=== PATIENT | female | born 1945 | race Caucasian/White ===

== ENCOUNTER 2017-11-08 10:56 | Day surgery (SDC) | payer MEDICARE, OTHER ==
[2017-11-08] MEDS ORDERED: LACTATED RINGERS 1,000 ML IV ONE (11:17)
[2017-11-08] MEDS ORDERED: MIDAZOLAM 2 MG/2 ML VIAL IVP ONE (12:00)
[2017-11-08] MEDS ORDERED: fentaNYL 250 MCG/5 ML VIAL IVP ONE (12:00)
[2017-11-08 12:53] VITALS: BP 128/79
== END 2017-11-08 10:57 | disposition home or self-care (01) ==
LOC: SDS 10:56
PROVIDERS: ATTEND Surgery
PROC: 0DJD8ZZ Inspection of Lower Intestinal Tract, Via Natural or Artificial Opening Endoscopic (ICD-10-PCS; principal; 2017-11-08 12:00)
DX: Z12.11 Encounter for screening for malignant neoplasm of colon (principal); K64.8 Other hemorrhoids; I10 Essential (primary) hypertension; Z79.82 Long term (current) use of aspirin; J45.909 Unspecified asthma, uncomplicated; E78.00 Pure hypercholesterolemia, unspecified; Z87.891 Personal history of nicotine dependence
CPT/HCPCS: G0121; J7120

== ENCOUNTER 2017-11-16 09:38 | Outpatient (CLI) | payer MEDICARE, OTHER ==
[2017-11-16 10:08] LABS: BUN - BLOOD UREA NITROGEN 17 mg/dL (6-20); CALCIUM 8.9 mg/dL (8.5-10.3); CARBON DIOXIDE - CO2 32 mmol/L (21-32); CHLORIDE 97 mmol/L (101-111); CREATININE 0.8 mg/dL (0.4-1.0); GFR - MDRD 71 (>89); GLUCOSE 102 mg/dL (70-100); SODIUM 137 mmol/L (135-145)
[2017-11-16 10:27] LABS: HB2 TOTAL 16.1 g/dL; HEMOGLOBIN A1C 0.58 g/dL; HEMOGLOBIN A1C % 5.4 % (4.6-6.2)
== END 2017-11-16 09:39 | disposition home or self-care (01) ==
LOC: LAB 09:38
PROVIDERS: ATTEND Internal Medicine
DX: R94.6 Abnormal results of thyroid function studies (principal); R73.09 Other abnormal glucose
CPT/HCPCS: 36415; 80048; 83036; 84443

== ENCOUNTER 2018-09-13 13:09 | Outpatient (CLI) | payer MEDICARE, OTHER ==
[2018-09-13] MEDS ORDERED: ALBUTEROL NEB 2.5 MG/3 ML INH ONE (13:36)
== END 2018-09-13 13:10 | disposition home or self-care (01) ==
LOC: RT 13:09
PROVIDERS: ATTEND Internal Medicine
DX: R05 Cough (principal)
CPT/HCPCS: 94010; 94664; 94729

== ENCOUNTER 2018-09-20 10:53 | Outpatient (CLI) | payer MEDICARE, OTHER ==
[2018-09-20 11:21] LABS: BASOPHILS # (AUTO) 0.1 10^3/uL (0.0-0.1); BASOPHILS % (AUTO) 0.8 %; EOSINOPHILS # (AUTO) 0.2 10^3/uL (0.0-0.7); EOSINOPHILS % (AUTO) 2.3 %; HGB - HEMOGLOBIN 10.6 g/dL (12.0-16.0); LYMPHOCYTES # (AUTO) 1.7 10^3/uL (1.5-3.5); LYMPHOCYTES % (AUTO) 22.4 %; MEAN CORPUSCULAR HEMOGLOBIN 26.4 pg (27.0-31.0); MEAN CORPUSCULAR HGB CONC 33.1 g/dL (32.0-36.0); MEAN PLATELET VOLUME 7.8 fL (7.9-10.8); MONOCYTES # (AUTO) 0.5 10^3/uL (0.0-1.0); MONOCYTES % (AUTO) 6.7 %; NEUTROPHILS # (AUTO) 5.2 10^3/uL (1.5-6.6); NEUTROPHILS % (AUTO) 67.8 %; PLT - PLATELET COUNT 323 10^3/uL (130-450); RED BLOOD COUNT 4.02 10^6/uL (4.20-5.40); RED CELL DISTRIBUTION WIDTH 16.5 % (12.0-15.0); WHITE BLOOD COUNT 7.7 x10^3/uL (4.8-10.8)
[2018-09-20 11:37] LABS: % IRON SATURATION 3 % (20-50); IRON 14 ug/dL (28-170); TOTAL IRON BINDING CAPACITY 433 ug/dL (250-450); TRANSFERRIN 309 mg/dL (192-382)
[2018-09-20 11:53] LABS: FERRITIN 6.9 ng/mL (11.0-306.8)
[2018-09-23 16:46] LABS: ALBUMIN 3.9 g/dL (3.8-4.8); ALPHA 1 GLOBULIN 0.4 g/dL (0.2-0.3); ALPHA 2 GLOBULIN 0.7 g/dL (0.5-0.9); BETA 1 GLOBULIN 0.5 g/dL (0.4-0.6); BETA 2 GLOBULIN 0.3 g/dL (0.2-0.5); GAMMA GLOBULIN 0.8 g/dL (0.8-1.7)
== END 2018-09-20 10:54 | disposition home or self-care (01) ==
LOC: LAB 10:53
PROVIDERS: ATTEND Internal Medicine
DX: D64.9 Anemia, unspecified (principal)
CPT/HCPCS: 36415; 82607; 82728; 83540; 84155; 84165; 84466; 85025

== ENCOUNTER 2018-11-07 10:20 | Day surgery (SDC) | payer MEDICARE, OTHER ==
[2018-11-07] MEDS ORDERED: LACTATED RINGERS 1,000 ML IV ONE (10:26)
[2018-11-07] MEDS ORDERED: MIDAZOLAM 2 MG/2 ML VIAL IVP ONE (11:53)
[2018-11-07] MEDS ORDERED: fentaNYL 100 MCG/2 ML VIAL IVP ONE (11:53)
[2018-11-07] MEDS ORDERED: LIDO GARGLE 30 ML BOTTLE ONE (11:54)
[2018-11-07] MEDS ORDERED: LIDO GARGLE 30 ML BOTTLE PO ONE (12:19)
[2018-11-07] MEDS ORDERED: BENZOCAINE/TETRACAINE/BUTAMBEN 20 GM MM ONE (12:19)
--- NOTE | 2018-11-07 12:27 | ANESTHESIA ---
Pre-Anesthesia VS, & Labs - Diagnosis anemia, dysphagia - Procedure egd Vital Signs: Temp Pulse Resp BP Pulse Ox 36.4 C L 106 H 20 148/87 H 96 11/07/18 10:30 11/07/18 10:30 11/07/18 10:30 11/07/18 10:30 11/07/18 10:30 Height 5 ft 1 in Weight (kg) 77.2 kg - NPO >8 hours - Is Patient ?: No Home Medications and Allergies Home Medications: Ambulatory Orders Albuterol 2.5 neb INH PRN PRN 11/04/18 Fluticasone/Salmeterol [Advair 250-50 Diskus] 1 puffs INH DAILY 11/04/18 Omeprazole [PriLOSEC] 20 mg PO DAILY 11/11/15 Zolpidem [Ambien] 5 mg PO DAILY PRN 11/11/15 hydroCHLOROthiazide [Hydrochlorothiazide] 25 mg PO DAILY 11/11/15 Losartan Potassium 25 mg PO DAILY 11/05/17 Atorvastatin Calcium 40 mg PO DAILY 11/08/17 Cyclobenzaprine [Flexeril] 10 mg PO PRN 11/08/17 Albuterol 2.5 neb INH PRN PRN 11/04/18 Fluticasone/Salmeterol [Advair 250-50 Diskus] 1 puffs INH DAILY 11/04/18 Allergies/Adverse Reactions: Allergies Allergy/AdvReac Type Severity Reaction Status Date / Time Penicillins Allergy Severe Anaphylaxis Verified 11/11/15 14:50 Anes History & Medical History - Medical History Cardiovascular: reports: Hypertension Pulmonary: reports: Asthma, Emphysema Gastrointestinal: reports: GERD, Colon polyps Urinary: reports: None Musculoskeletal: reports: Osteoarthritis Endocrine/Autoimmune: reports: None Skin: reports: None Smoking Status: Never smoker - Surgical History General: Colonoscopy Eyes Ears Nose Throat (EENT): Tonsil/Adenoidectomy Gynecologic: Hysterectomy Orthopedic: Knee replacement Exam Other Exam Comments:: Exam deferred. Patient sedated prior to my arrival Plan Anesthesia Type: MAC (Called for rescue sedation after patient had received 7mg versed and 100mcg fentanyl. History obtained from EMR and RN report.) Consent for Procedure(s) Verified and Reviewed: Yes Code Status: Attempt Resuscitation ASA classification: 2-Mild systemic disease Is this case an emergency?: No
[2018-11-07] MEDS ORDERED: PROPOFOL 200 MG/20 ML VIAL IVP ONE (12:34)
[2018-11-07 12:58] VITALS: BP 118/85
== END 2018-11-07 10:21 | disposition home or self-care (01) ==
LOC: SDS 10:20
PROVIDERS: ATTEND Surgery
PROC: 0DJD8ZZ Inspection of Lower Intestinal Tract, Via Natural or Artificial Opening Endoscopic (ICD-10-PCS; principal; 2018-11-07 14:15)
DX: K44.9 Diaphragmatic hernia without obstruction or gangrene (principal); D64.9 Anemia, unspecified; K21.9 Gastro-esophageal reflux disease without esophagitis; R13.10 Dysphagia, unspecified; I10 Essential (primary) hypertension; E78.00 Pure hypercholesterolemia, unspecified; J43.9 Emphysema, unspecified; J45.909 Unspecified asthma, uncomplicated; M19.90 Unspecified osteoarthritis, unspecified site; Z86.010 Personal history of colon polyps; Z79.51 Long term (current) use of inhaled steroids; Z96.659 Presence of unspecified artificial knee joint; Z79.82 Long term (current) use of aspirin; Z87.891 Personal history of nicotine dependence
CPT/HCPCS: 45378; A9270; J7120

== ENCOUNTER 2019-01-13 10:29 | Outpatient (CLI) | payer MEDICARE, OTHER ==
[2019-01-13 10:48] LABS: BASOPHILS # (AUTO) 0.1 10^3/uL (0.0-0.1); BASOPHILS % (AUTO) 0.7 %; EOSINOPHILS # (AUTO) 0.2 10^3/uL (0.0-0.7); EOSINOPHILS % (AUTO) 2.3 %; HGB - HEMOGLOBIN 12.1 g/dL (12.0-16.0); LYMPHOCYTES # (AUTO) 1.6 10^3/uL (1.5-3.5); LYMPHOCYTES % (AUTO) 23.6 %; MEAN CORPUSCULAR HEMOGLOBIN 29.1 pg (27.0-31.0); MEAN CORPUSCULAR HGB CONC 31.8 g/dL (32.0-36.0); MEAN CORPUSCULAR VOLUME 91.6 fL (81.0-99.0); MEAN PLATELET VOLUME 9.5 fL (7.9-10.8); MONOCYTES # (AUTO) 0.5 10^3/uL (0.0-1.0); MONOCYTES % (AUTO) 6.7 %; NEUTROPHILS # (AUTO) 4.6 10^3/uL (1.5-6.6); NEUTROPHILS % (AUTO) 66.3 %; PLT - PLATELET COUNT 296 10^3/uL (130-450); RED BLOOD COUNT 4.16 10^6/uL (4.20-5.40); RED CELL DISTRIBUTION WIDTH 15.5 % (12.0-15.0); WHITE BLOOD COUNT 6.9 x10^3/uL (4.8-10.8)
[2019-01-17 15:51] LABS: ALBUMIN 4.1 g/dL (3.8-4.8); ALPHA 1 GLOBULIN 0.3 g/dL (0.2-0.3); ALPHA 2 GLOBULIN 0.7 g/dL (0.5-0.9); BETA 1 GLOBULIN 0.5 g/dL (0.4-0.6); BETA 2 GLOBULIN 0.4 g/dL (0.2-0.5); GAMMA GLOBULIN 0.8 g/dL (0.8-1.7)
== END 2019-01-13 10:30 | disposition home or self-care (01) ==
LOC: LAB 10:29
PROVIDERS: ATTEND Internal Medicine
DX: D64.9 Anemia, unspecified (principal)
CPT/HCPCS: 36415; 81599; 82728; 83540; 83550; 84155; 84165; 85025; 86334

== ENCOUNTER 2019-02-13 11:18 | Outpatient (CLI) | payer MEDICARE, OTHER ==
--- NOTE | 2019-02-27 13:23 | Mammography Report ---
Reason: SCREENING MAMMO Procedure Date: 02/13/2019 Accession Number: [id number] / [id number] Procedure: MGN - Screening Mammo Dig Bilat CPT Code: FULL RESULT: EXAM: Screening Mammo Dig Bilat DATE: 02/13/2019 11:37 AM CLINICAL HISTORY: Prior benign right breast biopsy. For routine screening. TECHNIQUE: (B) - Bilateral CC and MLO views were obtained. COMPARISON: None PARENCHYMAL PATTERN: (A) - The breasts demonstrate scattered fibroglandular densities bilaterally. FINDINGS: There are no suspicious masses, calcifications, or areas of distortion on the left. In the right upper outer quadrant posteriorly there is a 7 mm ill-defined area of increased density on the MLO projection, possibly representing a lymph node, only partially seen on the cc view. Posterior to this there are 6 or 7 pleomorphic calcifications seen only on the MLO view.. IMPRESSION: Needs additional evaluation right breast by additional spot compression, magnification, rotated CC and true lateral projections. Ultrasound may also be needed depending on the results of these additional views. Negative left breast. BI-RADS 0 RECOMMENDATION: Additional views and possible ultrasound. If prior mammograms can be obtained for comparison additional imaging may be unnecessary. BI-RADS CATEGORY: (0) - Incomplete Examination - need additional evaluation. STANDARD QUALIFYING STATEMENTS: 1. This examination was not reviewed with the aid of Computer-Aided Detection (CAD). 2. A negative or benign imaging report should not preclude biopsy if clinically suspicious findings are present. 3. Dense breasts may obscure an underlying neoplasm. 4. This examination was reviewed without the aid of 3D breast imaging (tomosynthesis).
== END 2019-02-13 11:19 | disposition home or self-care (01) ==
LOC: DI.N 11:18
DX: Z12.31 Encounter for screening mammogram for malignant neoplasm of breast (principal); R92.8 Other abnormal and inconclusive findings on diagnostic imaging of breast
CPT/HCPCS: 77067

== ENCOUNTER 2020-10-28 14:23 | Emergency (ER) | payer MEDICARE, OTHER ==
--- NOTE | 2020-10-28 15:34 | Ultrasound Report ---
PROCEDURE: Duplex Ext Veins Left INDICATIONS: left leg cramping for 4 days TECHNIQUE: Real-time imaging, as well as color and pulse Doppler interrogation, were performed of the lower extr emity deep veins from the inguinal ligament to the popliteal fossa. COMPARISON: None. FINDINGS: The deep veins are normally compressible, and free of intraluminal thrombus. Color and pu lse Doppler demonstrate normal phasic intraluminal flow. There is normal augmentation response to di stal compression maneuver. IMPRESSION: No evidence of deep vein thrombosis involving the left lower extremity. Reviewed by: Pily Bowden MD, PhD on 10/28/2020 3:33 PM PDT Approved by: Pily Bowden MD, PhD on 10/28/2020 3:33 PM PDT Station ID: [id number]
--- NOTE | 2020-10-28 15:46 | ED Physician Documentation ---
History of Present Illness - Stated complaint Stated Complaint: LEFT LEG CRAMP X4 DAYS - Chief complaint Chief Complaint: Ext Problem - Additonal information Additional information: 75-year-old female presents emergency department for evaluation of left medial thigh pain. She reports that last night in bed she felt a charley horse in her thigh and it lasted forever. She is typically able to get up and walk her charley horses out but she has never had one in her thigh before. She is concerned she could have a blood clot. No fevers, no unilateral leg swelling. No chest pain or shortness of air. No recent travel, immobilization or surgery. Review of Systems Constitutional: denies: Fever, Chills Eyes: reports: Reviewed and negative Ears: reports: Reviewed and negative Nose: reports: Reviewed and negative Throat: reports: Reviewed and negative Cardiac: reports: Reviewed and negative Respiratory: reports: Reviewed and negative Musculoskeletal: reports: Extremity pain (Left leg left medial thigh.) PD PAST MEDICAL HISTORY - Past Medical History Cardiovascular: Hypertension Respiratory: Asthma, Emphysema Endocrine/Autoimmune: None GI: GERD, Colon polyps : None HEENT: None Psych: None Musculoskeletal: Osteoarthritis Derm: None - Past Surgical History General: Colonoscopy Ortho: Knee replacement /METAL RECLAMATION 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 HEENT: Tonsil/Adenoidectomy - Present Medications Home Medications: Ambulatory Orders Medication Instructions Recorded Confirmed Omeprazole [PriLOSEC] 20 mg PO DAILY 11/11/15 11/07/18 Zolpidem [Ambien] 5 mg PO DAILY PRN 11/11/15 11/07/18 hydroCHLOROthiazide 25 mg PO DAILY 11/11/15 11/07/18 [Hydrochlorothiazide] Losartan Potassium 25 mg PO DAILY 11/05/17 10/28/20 Atorvastatin Calcium 40 mg PO DAILY 11/08/17 11/07/18 Cyclobenzaprine [Flexeril] 10 mg PO PRN 11/08/17 Albuterol 2.5 neb INH PRN PRN 11/04/18 11/07/18 Fluticasone/Salmeterol [Advair 1 puffs INH DAILY 11/04/18 10/28/20 250-50 Diskus] - Allergies Allergies/Adverse Reactions: Allergies Allergy/AdvReac Type Severity Reaction Status Date / Time Penicillins Allergy Severe Anaphylaxis Verified 10/28/20 14:34 - Social History Does the pt smoke?: No Smoking Status: Never smoker Does the pt drink ETOH?: Yes - Immunizations Immunizations are current?: Yes PD ED PE NORMAL - General General: Alert and oriented X 3, No acute distress - Cardiac Cardiac: RRR, No murmur, No gallop - Respiratory Respiratory: No respiratory distress, Clear bilaterally - Abdomen Abdomen: Normal bowel sounds. No: Soft, Non tender, Non distended, No organomegaly, Other - Extremities Extremities: No deformity, No tenderness to palpate, Normal ROM s pain, No edema, No calf tenderness / cord, Other (Mild tenderness of the left medial thigh with deep palpation only. No fever, erythema or swelling noted.) Results - Vitals Vitals: Vital Signs - 24 hr 10/28/20 10/28/20 14:34 14:36 Temperature 36.5 C 36.6 C Heart Rate 106 H 95 Respiratory 16 14 Rate Blood Pressure 180/90 H 149/74 H O2 Saturation 98 98 Oxygen O2 Source Room air - Labs Labs: Laboratory Tests 10/28/20 10/28/20 15:46 15:46 WBC 9.2 RBC 3.96 L Hgb 8.8 L Hct 29.3 L MCV 74.0 L MCH 22.2 L MCHC 30.0 L RDW 15.3 H Plt Count 420 MPV 8.9 Neut # (Auto) 7.0 H Lymph # (Auto) 1.4 L Archuleta # (Auto) 0.6 Eos # (Auto) 0.1 Baso # (Auto) 0.1 Absolute Nucleated RBC 0.00 Nucleated RBC % 0.0 Sodium 132 L Potassium 3.4 L Chloride 93 L Carbon Dioxide 28 Anion Gap 11.0 BUN 15 Creatinine 0.7 Estimated GFR (MDRD) 82 L Glucose 117 H Calcium 9.1 Magnesium 2.0 Total Bilirubin 0.4 AST 30 ALT 28 Alkaline Phosphatase 70 Total Protein 7.2 Albumin 4.3 Globulin 2.9 Albumin/Globulin Ratio 1.5 Lipase 36 - Rads (name of study) US DVT Radiology: Final report received (negative for deep vein thrombosis.) PD MEDICAL DECISION MAKING - ED course Complexity details: re-evaluated patient, d/w patient ED course: 75-year-old female presents emergency department for evaluation of left thigh cramping in bed last night. Ultrasound DVT is negative. Screening labs show a moderate anemia with a hemoglobin of 8.8. I have advised patient to discuss this with her primary care provider. She should have outpatient cancer screening as well as iron studies completed. She does report a history of anemia and states that she used to be on iron. Electrolytes reveal a very mild hyponatremia with a sodium of 132. I have advised her to salt her food for the next 2 to 3 days. I did give her 40 of potassium orally for a potassium of 3.2 today. She is advised to follow-up her electrolytes with her primary care provider in the next 1 to 2 weeks. Emergent return precautions were discussed. Departure - Departure Disposition: 01 Home, Self Care Clinical Impression: Thigh cramp, Hypokalemia, Hyponatremia Anemia Qualifiers: Anemia type: unspecified type Qualified Code(s): D64.9 - Anemia, unspecified Condition: Stable Record reviewed to determine appropriate education?: Yes Follow-Up: Carlo Calvo MD [Primary Care Provider] - Comments: Wen were seen in the emergency department today for a thigh cramp in your left leg last night. The ultrasound did not show any blood clots. We did do screening labs that show a moderate anemia. Your blood count is 8.8. I would like you to discuss this with your primary care doctor. They should consider iron studies or other screening such as for cancer or blood in your stool. Your electrolytes showed a very mild low serum sodium and potassium. I do not think that these are low enough to have caused your cramping but I would like you to salt your food for the next 2 to 3 days and I have replaced your potassium orally once here in the emergency department. Please discuss this ED visit with your primary care doctor in the next 1 to 2 weeks. You should have repeat electrolyte screening completed at that time.
[2020-10-28 15:53] LABS: BASOPHILS # (AUTO) 0.1 10^3/uL (0.0-0.1); BASOPHILS % (AUTO) 0.9 %; EOSINOPHILS # (AUTO) 0.1 10^3/uL (0.0-0.7); EOSINOPHILS % (AUTO) 0.7 %; HCT - HEMATOCRIT 29.3 % (37.0-47.0); HGB - HEMOGLOBIN 8.8 g/dL (12.0-16.0); LYMPHOCYTES # (AUTO) 1.4 10^3/uL (1.5-3.5); LYMPHOCYTES % (AUTO) 15.5 %; MEAN CORPUSCULAR HEMOGLOBIN 22.2 pg (27.0-31.0); MEAN PLATELET VOLUME 8.9 fL (7.9-10.8); MONOCYTES # (AUTO) 0.6 10^3/uL (0.0-1.0); MONOCYTES % (AUTO) 6.3 %; NEUTROPHILS % (AUTO) 76.2 %; PLT - PLATELET COUNT 420 10^3/uL (130-450); RED BLOOD COUNT 3.96 10^6/uL (4.20-5.40); RED CELL DISTRIBUTION WIDTH 15.3 % (12.0-15.0); WHITE BLOOD COUNT 9.2 x10^3/uL (4.8-10.8)
[2020-10-28 16:05] LABS: ALBUMIN 4.3 g/dL (3.2-5.5); ALBUMIN/GLOBULIN RATIO 1.5 (1.0-2.2); BILIRUBIN,TOTAL 0.4 mg/dL (0.2-1.0); CALCIUM 9.1 mg/dL (8.5-10.3); CREATININE 0.7 mg/dL (0.4-1.0); POTASSIUM 3.4 mmol/L (3.5-5.0); TOTAL PROTEIN 7.2 g/dL (6.7-8.2)
[2020-10-28 16:28] VITALS: BP 149/74
[2020-10-28] MEDS ORDERED: POTASSIUM CHLORIDE 20 MEQ TABLET PO STA (16:33)
== END 2020-10-28 16:46 | disposition home or self-care (01) ==
LOC: ED 14:23
DX: E87.6 Hypokalemia (principal); E87.1 Hypo-osmolality and hyponatremia; D64.9 Anemia, unspecified; I10 Essential (primary) hypertension
CPT/HCPCS: 36415; 80053; 83690; 83735; 85025; 93971; 99284; A9270

== ENCOUNTER 2020-12-19 09:26 | Outpatient (CLI) | payer MEDICARE, OTHER ==
[2020-12-19 10:04] LABS: BILIRUBIN,URINE NEGATIVE (NEGATIVE); CLARITY,URINE CLEAR (CLEAR); GLUCOSE, URINE (UA) NEGATIVE (NEGATIVE); KETONES,URINE (UA) NEGATIVE (NEGATIVE); LEUKOCYTE ESTERASE, URINE MODERATE (NEGATIVE); NITRITE,URINE NEGATIVE (NEGATIVE); OCCULT BLOOD,URINE NEGATIVE (NEGATIVE); PROTEIN,URINE NEGATIVE (NEGATIVE); UROBILINOGEN,URINE 0.2 (NORMAL) E.U./dL (NORMAL)
[2020-12-19 10:09] LABS: HCT - HEMATOCRIT 39.4 % (37.0-47.0); HGB - HEMOGLOBIN 12.2 g/dL (12.0-16.0); MEAN CORPUSCULAR HEMOGLOBIN 25.7 pg (27.0-31.0); MEAN CORPUSCULAR VOLUME 83.1 fL (81.0-99.0); MEAN PLATELET VOLUME 9.6 fL (7.9-10.8); PLT - PLATELET COUNT 288 10^3/uL (130-450); RED BLOOD COUNT 4.74 10^6/uL (4.20-5.40); WHITE BLOOD COUNT 6.7 x10^3/uL (4.8-10.8)
[2020-12-19 10:14] LABS: BACTERIA,URINE Few /HPF (None Seen); RBC,URINE 0-5 /HPF (0-5); SQUAMOUS EPITHELIAL CELL,UR FEW Squamous (<= Few); WBC,URINE 0-3 /HPF (0-5)
[2020-12-19 10:46] LABS: ALBUMIN/GLOBULIN RATIO 1.4 (1.0-2.2); ALKALINE PHOSPHATASE 61 IU/L (42-121); ALT ALANINE AMINOTRANSFERASE 24 IU/L (10-60); AST ASPARTATE AMINOTRANSFERASE 20 IU/L (10-42); BILIRUBIN,TOTAL 0.6 mg/dL (0.2-1.0); BUN - BLOOD UREA NITROGEN 13 mg/dL (6-20); CARBON DIOXIDE - CO2 26 mmol/L (21-32); CHLORIDE 103 mmol/L (101-111); CHOL/HDL RATIO 2.8 (<4.4); CHOLESTEROL 175 mg/dL; CREATININE 0.7 mg/dL (0.4-1.0); GFR - MDRD 82 (>89); GLUCOSE 115 mg/dL (70-100); HDL CHOLESTEROL 62 mg/dL; LDL CHOLESTEROL,CALCULATED 93 mg/dL; LDL/HDL RATIO 1.5 (<4.4); SODIUM 139 mmol/L (135-145); TOTAL PROTEIN 6.9 g/dL (6.7-8.2); TRIGLYCERIDES 102 mg/dL; VLDL CHOLESTEROL 20 mg/dL
[2020-12-19 12:43] LABS: ESTIMATED AVERAGE GLUCOSE 94 mg/dL (70-100); HEMOGLOBIN A1c% 4.9 % (4.27-6.07)
== END 2020-12-19 09:27 | disposition home or self-care (01) ==
LOC: LAB 09:26
PROVIDERS: ATTEND Internal Medicine
DX: I10 Essential (primary) hypertension (principal); E78.5 Hyperlipidemia, unspecified; R73.9 Hyperglycemia, unspecified
CPT/HCPCS: 36415; 80053; 80061; 81001; 83036; 83721; 84443; 85027

== ENCOUNTER 2021-07-04 11:13 | Outpatient (CLI) | payer MEDICARE, OTHER ==
--- NOTE | 2021-07-07 08:58 | Mammography Report ---
BILATERAL DIGITAL SCREENING MAMMOGRAM 3D/2D: 07/04/2021 CLINICAL: Routine screening. Comparison is made to exams dated: 02/13/2019 mammogram - [facility] and 01/27/2018, 12/14/2016, 09/02/2015 mammogram - [facility]. There are scattered fibroglandular elements in both breas ts. No significant masses, calcifications, or other findings are seen in either breast. There has been no significant interval change. IMPRESSION: NEGATIVE There is no mammographic evidence of malignancy. A 1 year screening mammogram is recommended. This exam was interpreted at Station ID: [id number]. NOTE: For mammograms, a report in lay terms will be sent to the patient. Approximately 15% of breast malignancies will not be visualized mammographically. In the management of a palpable breast mass, a negative mammogram must not discourage biopsy of a clinically suspicious lesion. Electronically Signed By: Bear Charles M.D. slc/:07/04/2021 12:53:10 ACR BI-RADS Category 1: Negative 3341F PARENCHYMAL PATTERN: (A) - The breast(s) demonstrate(s) scattered fibroglandular densities. BI-RADS CATEGORY: (1) - 1 RECOMMENDATION: (ANNUAL) - Recommend routine annual screening mammography. [id number] 1 year screening LATERALITY: (B)
== END 2021-07-04 11:14 | disposition home or self-care (01) ==
LOC: DI 11:13
DX: Z12.31 Encounter for screening mammogram for malignant neoplasm of breast (principal)

== ENCOUNTER 2021-11-10 14:02 | Emergency (ER) | payer MEDICARE, OTHER ==
[2021-11-10 14:12] VITALS: BP 149/77
[2021-11-10] MEDS ORDERED: KETOROLAC 30 MG/ML VIAL IM STA (15:30)
[2021-11-10] MEDS ORDERED: DEXAMETHASONE 10 MG/ML VIAL PO STA (15:31)
[2021-11-10] MEDS ORDERED: CHERRY SYRUP 10 ML UDC PO ONE (15:31)
--- NOTE | 2021-11-10 15:33 | ED Physician Documentation ---
History of Present Illness - Stated complaint Stated Complaint: SWOLLEN GLANDS/HEADACHE - Chief complaint Chief Complaint: Heent - History obtained from History obtained from: Patient - History of Present Illness Timing: How many weeks ago (06/22) - Additonal information Additional information: 76-year-old Carrie Rolle has a history of monoclonal gammopathy and she is undergoing work-up for this including a recent PET scan. She has developed some pain in the back of her neck and feels that she gets swelling there each night right at the base of the skull on both sides. She states this is better during the day and that she has a little bit of a headache associated with this. She can only recall that she has been having to move her plantars on her deck when the wind blows and this is the only strain that she think she has done. Her recent PET scan (10-01-21) did not demonstrate any incident of lymphadenopathy in the neck. Review of Systems Constitutional: denies: Fever, Chills, Myalgias, Fatigue, Weight Loss, Sweats Eyes: denies: Decreased vision Ears: denies: Ear pain Nose: denies: Rhinorrhea / runny nose, Congestion Throat: denies: Sore throat Cardiac: denies: Chest pain / pressure Respiratory: reports: Cough. 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 HEENT: Tonsil/Adenoidectomy - Present Medications Home Medications: Ambulatory Orders Medication Instructions Recorded Confirmed Omeprazole [PriLOSEC] 20 mg PO DAILY 11/11/15 11/07/18 Zolpidem [Ambien] 5 mg PO DAILY PRN 11/11/15 11/07/18 hydroCHLOROthiazide 25 mg PO DAILY 11/11/15 11/07/18 [Hydrochlorothiazide] Losartan Potassium 25 mg PO DAILY 11/05/17 10/28/20 Atorvastatin Calcium 40 mg PO DAILY 11/08/17 11/07/18 Cyclobenzaprine [Flexeril] 10 mg PO PRN 11/08/17 Albuterol 2.5 neb INH PRN PRN 11/04/18 11/07/18 Fluticasone/Salmeterol [Advair 1 puffs INH DAILY 11/04/18 10/28/20 250-50 Diskus] Cyclobenzaprine [Flexeril] 10 mg PO TID PRN #20 tablet 11/10/21 Meloxicam [Mobic] 7.5 mg PO BID PRN #20 tablet 11/10/21 - Allergies Allergies/Adverse Reactions: Allergies Allergy/AdvReac Type Severity Reaction Status Date / Time Penicillins Allergy Severe Anaphylaxis Verified 11/10/21 14:12 - Social History Does the pt smoke?: No Smoking Status: Never smoker Does the pt drink ETOH?: Yes - Immunizations Immunizations are current?: Yes PD ED PE NORMAL - Vitals Vital signs reviewed: Yes (tachy and hypertensive ) - General General: Alert and oriented X 3, No acute distress, Well developed/nourished - HEENT HEENT: Atraumatic, PERRL, EOMI - Neck Neck: Supple, no meningeal sign, No bony TTP, Other (There is point tenderness at the insertion of the trapezius into the occiput bilaterally. There is no palpable mass.) - Cardiac Cardiac: RRR, No murmur - Respiratory Respiratory: No respiratory distress, Clear bilaterally - Abdomen Abdomen: Soft, Non tender - Back Back: No CVA TTP, No spinal TTP - Derm Derm: Normal color, Warm and dry, No rash - Extremities Extremities: No deformity, No edema - Neuro Neuro: Alert and oriented X 3, fish icer 2-12 intact, No motor deficit, No sensory deficit, Normal speech Eye Opening: Spontaneous Motor: Obeys Commands Verbal: Oriented GCS Score: 15 - Psych Psych: Normal mood, Normal affect Results - Vitals Vitals: Vital Signs - 24 hr 11/10/21 14:06 Temperature 36.4 C L Heart Rate 116 H Respiratory 14 Rate Blood Pressure 149/77 H O2 Saturation 98 Oxygen O2 Source Room air PD MEDICAL DECISION MAKING - ED course Complexity details: reviewed old records, re-evaluated patient, considered differential, d/w patient ED course: 76-year-old female with bilateral greater occipital neuritis likely related to movement of plantars on her deck and likely not related to her monoclonal gammopathy is treated in the emergency department here with dexamethasone and Toradol. We will place her on a course of meloxicam as needed. She has had prior use of Aleve and has had to discontinue that secondary to GI bleeding. Departure - Departure Disposition: 01 Home, Self Care Clinical Impression: Occipital neuritis Condition: Stable Instructions: ED Headache Tension Follow-Up: Magy Swanson MD [Primary Care Provider] - Prescriptions: Cyclobenzaprine [Flexeril] 10 mg PO TID PRN #20 tablet PRN Reason: Spasms Meloxicam [Mobic] 7.5 mg PO BID PRN #20 tablet PRN Reason: Pain Comments: Carrie, today it looks like you have spasm of the muscles that attach to the skull right at the exit of a nerve artery and vein. This usually causes a headache and neck pain. This is likely due to moving your plantars on your deck. My recommendation is to discontinue moving these plantars around and we have given you today some dexamethasone and Toradol for treatment acutely. I have provided a prescription for some meloxicam, which should be taken with food, and some Flexeril which is a muscle relaxant that will help you with sleep. These have been E scribed to Jen Pitt in [place].
== END 2021-11-10 15:54 | disposition home or self-care (01) ==
LOC: ED 14:02
DX: M54.81 Occipital neuralgia (principal)
CPT/HCPCS: 96372; 99283; A9270